=== PATIENT | male | born 1945 | race Caucasian/White ===

== ENCOUNTER → 2023-10-22 10:01 | Outpatient (REF) | payer OTHER, SELFPAY ==
[2023-10-22 10:57] LABS: Urine Albumin Trace (Neg - Trace); Urine Bilirubin Negative (Negative); Urine Character Slightly Cloudy (Clear); Urine Color Straw; Urine Glucose Negative (Negative); Urine Ketone Negative (Negative); Urine Leukocyte Negative (Negative); Urine Nitrite Negative (Negative); Urine Occult Blood 4+ (Negative); Urine Urobilinogen Negative (Neg - 1+)
[2023-10-22 11:13] LABS: Urine Squamous Cell 0-2 /LPF (Few)
[2023-10-22 11:16] LABS: Urine Bacteria Few (Negative)
[2023-10-22 11:17] LABS: Urine Red Blood Cell 30-40 /HPF (0-2)
[2023-10-22 11:18] LABS: Urine White Cell 40-50 /HPF (0-5)
[2023-10-22 11:21] LABS: Blood Urea Nitrogen 35 mg/dl (9-20); Calcium 9.4 mg/dl (8.4-10.2); Carbon Dioxide 23 mmol/L (22-30); Chloride 108 mmol/L (98-107); Glucose 108 mg/dl (70-99); Potassium 4.6 mmol/L (3.5-5.1); Sodium 141 mmol/L (135-145); eGFR 26.94
== END ==
LOC: REG 10:01
PROVIDERS: ATTENDING PHYSICIAN Family Medicine
DX: N18.31 Chronic kidney disease, stage 3a (principal); I10 Essential (primary) hypertension; R31.0 Gross hematuria
CPT/HCPCS: 36415; 80048; 81003; 81015; 87086

== ENCOUNTER → 2023-10-24 13:51 | Outpatient (REF) | payer OTHER, SELFPAY | LOC: HWRAD 13:51 | PROVIDERS: ATTENDING PHYSICIAN Family Medicine | DX: R31.0 Gross hematuria (principal) | CPT/HCPCS: 74176 ==

== ENCOUNTER 2023-10-24 17:04 | Emergency (ER) | payer OTHER, SELFPAY ==
[2023-10-24 17:11] VITALS: BP 180/110
[2023-10-24 17:38] LABS: Urine Albumin 2+ (Neg - Trace); Urine Bilirubin Negative (Negative); Urine Character Very Cloudy (Clear); Urine Color Amber; Urine Glucose Negative (Negative); Urine Ketone Negative (Negative); Urine Leukocyte Trace (Negative); Urine Nitrite Negative (Negative); Urine Occult Blood 4+ (Negative); Urine Specific Gravity 1.015 (<1.030); Urine Urobilinogen Negative (Neg - 1+)
[2023-10-24 17:39] LABS: % Basophils 0.8 % (0-2); % Eosinophils 0.8 % (0-6); % Immature Granulocytes 0.6 % (0-0.5); % Lymphocytes 41.7 % (20.5-51.1); % Monocytes 8.1 % (1.7-9.3); Absolute Basophils 0.1 10^3/uL (0-0.2); Absolute Eosinophils 0.1 10^3/uL (0-0.7); Absolute Immature Granulocytes 0.1 10^3/uL (0-0.05); Absolute Lymphocytes 3.3 10^3/uL (1.2-3.4); Absolute Monocytes 0.6 10^3/uL (0.1-0.6); Absolute Neutrophils 3.8 10^3/uL (1.4-6.5); Hematocrit 37.2 % (39.0-52.0); Hemoglobin 12.8 g/dL (13.0-18.0); Mean Corp Hgb Conc. 34.4 g/dL (33.0-37.0); Mean Corpuscular Hgb 31.7 pg (27.0-31.0); Mean Corpuscular Volume 92.1 fL (80.0-94.0); Mean Platelet Volume 9.6 fL (7.4-10.4); Nucleated Red Blood Cells % 0 % (-); Platelet Count 285 10^3/uL (130-400); Red Blood Cell Count 4.04 10^6/uL (4.70-6.10); Red Cell Dist. Width 12.5 % (11.5-14.5); White Blood Cell Count 7.9 10^3/uL (4.8-10.8)
[2023-10-24 17:46] LABS: Urine Bacteria Many (Negative); Urine Red Blood Cell 50-60 /HPF (0-2)
[2023-10-24 17:49] LABS: ALT (SGPT) 15 U/L (0-50); AST (SGOT) 26 U/L (17-59); Albumin 4.7 g/dl (3.5-5.0); Alkaline Phosphatase 98 U/L (38-126); Blood Urea Nitrogen 33 mg/dl (9-20); Calcium 9.2 mg/dl (8.4-10.2); Carbon Dioxide 23 mmol/L (22-30); Chloride 109 mmol/L (98-107); Glucose 95 mg/dl (70-99); Potassium 4.5 mmol/L (3.5-5.1); Sodium 141 mmol/L (135-145); Total Bilirubin 0.8 mg/dl (0.2-1.3); Total Protein 7.5 g/dl (6.3-8.2); eGFR 28.35
--- NOTE | 2023-10-24 18:27 | ED.GENMED ---
History of Present Illness
General
Chief Complaint: Urinary Symptoms
Source: patient
Exam Limitations: none
Time Seen by Provider: 10/24/23 18:25
Nursing documentation reviewed up to this point in time: agreed with
Travel History
Have you had any contact with someone who has COVID-19?: No
Do you have any symptoms of coronavirus? Fever > 100 degrees, chills, cough, shortness of breath, sore throat, loss of taste or smell, muscle aches, or headache?: No
History of Present Illness
History of Present Illness:
The patient is a 78-year-old man who reports that he had an outpatient CAT scan done earlier today and after his primary care doctor about the result, he was told to come to the emergency department. Patient reports a 5 to 6-day history of blood in
his urine. He is not on blood thinners. He denies dizziness, chest pain or shortness of breath. Patient reports he feels well. He denies back pain, nausea, vomiting, chills and fever. Patient has no complaints.
Past History
Past History
ED Past Medical History: Hypercholesterolemia and Hypothyroidism
ED Past Surgical History: Tonsilectomy and Other (Hernia surgery)
Social History
Tobacco: Non-smoker
Alcohol: Occasional
Personal:
Living: with family
Employment: Other
Family History
Family History: Other
Review of Systems
Review of Systems
Allergies reviewed?: Yes
All Other Systems: ROS reviewed and negative except as documented in HPI and ROS
Constitutional: Reports no symptoms
EENT: Reports no symptoms
Respiratory: Reports no symptoms
Cardiac: Reports no symptoms
ABD/GI: Reports no symptoms
: Reports bleeding
Musculoskeletal: Reports no symptoms
Skin: Reports no symptoms
Neurological: Reports no symptoms
Endocrine: Reports no symptoms
Hematologic/Lymphatic: Reports no symptoms
Psychiatric: Reports no symptoms
Phy Exam
Physical Exam
Physical Exam:
Physical Exam
General: no apparent distress, not acutely ill. Well and comfortable appearing
Neck: supple. no meningeal signs. normal psoterior pharynx
Heart: s1/s2 regular rate and rhythm, no murmur. equal radial pulses.
Lungs: no acute respiratory distress. clear bilaterally
Abdomen: normal bowel sounds. not tender. no CVAT
Neuro: alert and oriented. no focal neurological deficits
Skin: no rash
Psychiatric: well kept. interactive and cooperative
Extremities: no edema. no calf tenderness. negative homans. good distal pulses
Course
Orders/Labs/Results
Orders:
Orders
10/24/23 17:24
Complete Blood Count/With Diff Urgent
Comprehensive Metabolic Panel Urgent
Urinalysis Reflex To Culture Urgent
Date Specimen was Collected: 10/24/23
Time Specimen was Collected: 17:13
Urine Microscopic Reflex Cult Urgent
Urine Culture Urgent
BECKI Source: U
Specimen Description:
Date Specimen was Collected: 10/24/23
Time Specimen was Collected: 17:13
10/24/23 19:26
LevoFLOXacin [Levaquin] 500 mg PO NOW STA
Abnormal Lab Results
10/24/23
17:24
RBC 4.04 L 10^6/uL
(4.70-6.10)
Hgb 12.8 L g/dL
(13.0-18.0)
Hct 37.2 L %
(39.0-52.0)
MCH 31.7 H pg
(27.0-31.0)
Abs Immat Gran (auto) 0.1 H 10^3/uL
(0-0.05)
Immature Gran % 0.6 H %
(0-0.5)
Chloride 109 H mmol/L
(98-107)
BUN 33 H mg/dl
(9-20)
Creatinine 2.3 H mg/dL
(0.7-1.3)
Ur Occult Blood Reflex 4+ A
(Negative)
Leukocyte Esterase Rfl Trace A
(Negative)
Urine RBC 50-60 A /HPF
(0-2)
Urine Bacteria (Reflex) Many A
(Negative)
Urine Albumin (Reflex) 2+ A
(Neg - Trace)
10/24/23 17:24
10/24/23 17:24
Vital Signs
Initial and Last Documented VS:
Initial Vital Signs
Temp Pulse Resp BP Pulse Ox
98.0 F 82 16 180/110 98
10/24/23 17:11 10/24/23 17:11 10/24/23 17:11 10/24/23 17:11 10/24/23 17:11
Last Documented Vital Signs
Temp Pulse Resp BP Pulse Ox
98.0 F 78 18 167/91 98
10/24/23 17:11 10/24/23 19:20 10/24/23 19:20 10/24/23 19:20 10/24/23 17:11
MDM/Problems Addressed
Differential Diagnosis Includes:
Kidney stone, UTI, bladder mass
MDM/Problems Addressed:
Patient presents with acute hematuria from this week
Chronic conditions affecting care: HTN
Acute Exacerbation and/or Progression of Chronic Illness:
Patient is acutely hypertensive, he feels is due to nervousness of being in the ED
Acute Exacerbation and/or Progression of Chronic Illness: HTN
*Radiology
Radiology exam reviewed: radiology read reviewed
*Pulse Oximetry
Patient hypoxic: no
*EKG
Interpreted by ED Provider?: NA
*Door Cutter Interpretation
Rate: Door Cutter- N/A
*Critical Care Note
Total Time (30-74mins, 75-104mins- exclusive of procedures): Not Applicable
Data Reviewed
Source: patient and spouse
Patient Management
Social determinants of health affecting care: Living situation and Strong social support
Discussion with other providers: Other (Dr. Mcnamara)
Escalation/DeEscalation of care consider admission/obs:
Discussed patient's presentation, CT and lab results with Dr. Mcnamara. Dr. Mcnamara assured me that he can see the patient this Friday
Patient denies back pain, chills, nausea and states he feels great and really wants to go home. He understands the importance of following up with Dr. Mcnamara.
ED Attending Note
-
Portions of this chart may have been created with voice recognition software.� Occasional wrong word or��sound alike� substitutions may have occurred due to the inherent limitations of voice recognition software.
Discharge Plan
Departure
Patient Disposition: Home (Routine Discharge)
Date of Disposition: 10/24/23
Time of Disposition: 18:34
Patient with high blood pressure during this ER visit?: Yes
Condition: Good
Covid-19: Not Applicable
Discharge Problem:
Mass of bladder, Hydronephrosis of left kidney
Instructions: Hydronephrosis, Adult (DC), BLOOD PRESSURE
Prescriptions:
New
ciprofloxacin HCl [Cipro] 250 mg tablet
250 mg PO BID 5 Days Qty: 10 0RF
No Action
amlodipine 5 mg tablet
5 mg PO QPM
levothyroxine 100 mcg tablet
100 mcg PO DAILY
simvastatin 20 mg tablet
20 mg PO HS
Referrals:
Alejandro Mcnamara MD [Active] - (Please call Dr. Mcnamara's office this Friday and let the office know that Dr. Mcnamara has spoken to the emergency doctor and knows that you need to be seen this Friday )
Interventions
Interventions:
*Risk Screen - Suicide Last Done: 10/24/23 19:18
*General Assessment Last Done: 10/24/23 19:18
*Neglect/Abuse Screening Last Done: 10/24/23 19:18
ED- Fall Risk Assessment Last Done: 10/24/23 19:18
*ED COVID-19 Vaccine History Last Done: 10/24/23 17:11
*Nursing Disposition Last Done: 10/24/23 19:36
ED-Male Genitourinary Assessment Last Done: 10/24/23 19:16
Discharge Date and Time
Discharge Date/Time: 10/24/23 19:37
[2023-10-24 19:20] VITALS: BP 167/91
[2023-10-24] MEDS: LEVAQUIN 500 MG PO (19:31)
== END 2023-10-24 19:37 | disposition home or self-care (01) ==
LOC: EMR 17:04
PROVIDERS: EMERGENCY PHYSICIAN Emergency Medicine; FAMILY PHYSICIAN Family Medicine
DX: N32.9 Bladder disorder, unspecified (principal); R31.9 Hematuria, unspecified; N13.30 Unspecified hydronephrosis; I10 Essential (primary) hypertension; E03.9 Hypothyroidism, unspecified; E78.00 Pure hypercholesterolemia, unspecified
CPT/HCPCS: 99283; 80053; 81003; 81015; 85025; 87086

== ENCOUNTER 2023-11-06 06:33 | Day surgery (SDC) | payer OTHER, SELFPAY ==
[2023-11-04 09:02] LABS: INR 0.99; PT 12.9 Sec (11.4-14.6)
[2023-11-04 12:40] VITALS: BMI 27.0
[2023-11-06] VITALS (26 sets, daily range): BP systolic 72–148; BP diastolic 55–122; BMI 27.0
[2023-11-06] MEDS: CYSVIEW KIT 100 MG INTRAVES (07:57)
[2023-11-06] MEDS: NORMOSOL-R 1000 IV (07:57)
--- NOTE | 2023-11-06 10:33 | W.PN.URO.CBU ---
Today's Communication / Plan
-
cbi and try and wean by fri
Assessment / Plan
-
cbi check labs irad awate needs left erc tube probably friday try and decrease cbi and serial hgb and creatini hand irrigate prn
Diagnosis
-
Date of Service: November 06, 2023
-
Patient Diagnosis:
bladder mass await path but looked muscle invasive has left hydro needs perec tube irad aware
Post Op Day:
Subjective
-
hates armijo
Objective
-
Vital Signs
Temp Pulse Resp BP Pulse Ox
98.9 F 84 16 148/82 100
11/06/23 07:44 11/06/23 07:44 11/06/23 07:44 11/06/23 07:44 11/06/23 07:44
Review of Systems
-
Abdomen/GI: Abdominal Pain (bladder spasms)
: Flank Pain and Difficulty Voiding
Physical Exam
-
General - well developed, well nourished, no acute distress
Chest - clear bilaterally
Abdomen - soft, non-tender, positive bowel sounds, no CVAT, no incisional pain or distention
Genitalia - normal
Rectal - normal
Skin - warm & dry with no rash
Neuro - AOx3, no motor deficits
Extremities - no clubbing, no cyanosis, no edema
Incision - clean, dry
Dressing - clean, dry, intact
Counseling
-
irad to see about perc tube
Care Review
Data Reviewed
Discussed with: Nursing, IRAD and Family
[2023-11-06 15:11] LABS: ALT (SGPT) 16 U/L (0-50); AST (SGOT) 23 U/L (17-59); Albumin 3.9 g/dl (3.5-5.0); Alkaline Phosphatase 91 U/L (38-126); Blood Urea Nitrogen 41 mg/dl (9-20); Calcium 8.1 mg/dl (8.4-10.2); Carbon Dioxide 21 mmol/L (22-30); Chloride 108 mmol/L (98-107); Estimated Creatinine Clearance 29 ml/min; Glucose 131 mg/dl (70-99); Potassium 4.5 mmol/L (3.5-5.1); Sodium 135 mmol/L (135-145); Total Bilirubin 0.6 mg/dl (0.2-1.3); Total Protein 6.3 g/dl (6.3-8.2); eGFR 33.53
[2023-11-06 15:19] LABS: Hematocrit 35.8 % (39.0-52.0); Hemoglobin 11.9 g/dL (13.0-18.0)
--- NOTE | 2023-11-06 17:00 | PTCARENOTE ---
Pt received from IR s/p L nephrostomy tube placement. AAOx3. On 2L nasal cannula sating 99%. CBI infusing. Tineo draining red punch color urine. No clots noted. L nephrostomy bag with red punch color urine. Pt with no complaints of pain at this
time. Assessment documented. at bedside. Call bustillos within reach.
[2023-11-06] MEDS: NORVASC 5 MG PO (17:29)
[2023-11-06] MEDS: LIPITOR 10 MG PO (21:21)
[2023-11-06] MEDS: BACTRIM 400 MG/80 MG 1 TABLET PO (21:21)
[2023-11-07 03:31] VITALS: BP 118/66
[2023-11-07 04:59] LABS: Hematocrit 32.6 % (39.0-52.0); Hemoglobin 11.1 g/dL (13.0-18.0)
[2023-11-07 05:24] LABS: ALT (SGPT) 12 U/L (0-50); AST (SGOT) 19 U/L (17-59); Albumin 3.6 g/dl (3.5-5.0); Alkaline Phosphatase 82 U/L (38-126); Blood Urea Nitrogen 42 mg/dl (9-20); Calcium 8.5 mg/dl (8.4-10.2); Carbon Dioxide 20 mmol/L (22-30); Chloride 109 mmol/L (98-107); Estimated Creatinine Clearance 27 ml/min; Glucose 115 mg/dl (70-99); Potassium 4.5 mmol/L (3.5-5.1); Sodium 136 mmol/L (135-145); Total Bilirubin 0.5 mg/dl (0.2-1.3); Total Protein 5.9 g/dl (6.3-8.2); eGFR 29.91
[2023-11-07 06:06] LABS: Hepatitis C Antibody Negative (Negative)
[2023-11-07 07:38] VITALS: BP 133/66
[2023-11-07] MEDS: BACTRIM 400 MG/80 MG 1 TABLET PO (08:31)
[2023-11-07] MEDS: SYNTHROID 100 MCG PO (08:31)
--- NOTE | 2023-11-07 08:38 | W.DCSUMMARY ---
Discharge Summary
Discharge Data
Date of Admission: 11/06/23
Date of Discharge: 11/07/23
Total time spent discharging patient (in min): 35 mins
-
Pending Results: Yes (pathology)
Hospital Course
pt with 7 cm bladder mass unsderwent turbt Also preoperatively had left hydronephrosis Went to [facility] for palcement lt perutaneous nephrostomy tube Did well overnoght creatinine down 2. 6 to 2.2 hgb stable home today with armijo
Discharge Plan
-
Patient Disposition: Home (Routine Discharge)
Discharge Diagnosis/Procedures: bladder cancer left hydronephrosis
Condition: Good
Diet: No restrictions
Activity: As tolerated
Driving Restrictions: As prior to admission
Bathing Restrictions: None
Other Services: VN
Wound Care: armijo use leg bag when ambulating lg bag at sleep or rest
Referrals:
Alejandro Mcnamara MD [Active] - (call dr mcnamara if questions or problems and to set up next phase treatment [phone])
Anastacio Jasso DO [Family Provider] -
Prescriptions:
New
sulfamethoxazole-trimethoprim [Bactrim DS] 800-160 mg tablet
1 tab PO BID Qty: 10 0RF
Rx Instructions:
1 po bid untol finished increase fluids
Continued
amlodipine 5 mg tablet
5 mg PO QPM
levothyroxine 100 mcg tablet
100 mcg PO DAILY
simvastatin 20 mg tablet
20 mg PO HS
Discharge Orders:
Discharge Patient (As Directed); Ordered 11/07/23
Ordered By: Alejandro Mcnamara
--- NOTE | 2023-11-07 08:44 | W.PN.URO.CBU ---
Today's Communication / Plan
-
teach leg [facility] after lunch
Assessment / Plan
-
cbi stoped id =f stab;e home today with armijo and perc tube
Diagnosis
-
Date of Service: November 07, 2023
-
Patient Diagnosis:
Post Op Day:
Patient Diagnosis:
bladder mass await path but looked muscle invasive has left hydro needs perec tube irad aware
Post Op Day:
Subjective
-
feels well
Objective
-
Vital Signs
Temp Pulse Resp BP Pulse Ox
98.2 F 83 14 133/66 98
11/07/23 07:38 11/07/23 07:38 11/07/23 07:38 11/07/23 07:38 11/07/23 07:38
Intake and Output
11/06/23 11/07/23 11/08/23
06:59 06:59 06:59
Intake Total 630 / 630
Output Total 3735 / 3735 1625 / 1625
Balance -3105 / -3105 -1625 / -1625
Intake:
Oral fluids 480 / 480
IV fluids (Total) 150 / 150
Norm 150 / 150
Output:
Drain Output (Total) 235 / 235
Left Lower Back Placed in IR 235 / 235
True Urine Output from CBI 3500 / 3500 1625 / 1625
Laboratory Results
11/07/23 04:21
11/07/23 04:21
Review of Systems
-
: Bleeding
Physical Exam
-
General - well developed, well nourished, no acute distress
Chest - clear bilaterally
Abdomen - soft, non-tender, positive bowel sounds, no CVAT, no incisional pain or distention
Genitalia - normal
Rectal - normal
Skin - warm & dry with no rash
Neuro - AOx3, no motor deficits
Extremities - no clubbing, no cyanosis, no edema
Incision - clean, dry
Dressing - clean, dry, intact
Care Review
Data Reviewed
Discussed with: Nursing
--- NOTE | 2023-11-07 10:50 | CM ---
Chart reviewed. Spoke with pt and his at bedside
Pt lives with his in a 2 story home
Retired, active, independent
DME - rolling walker in home, not pts
Denies past SNF/HH
PCP - Dr Mtz
Pharm - [facility]
Has ride at home at d/c
CM consulted for HH - TT sent to [facility] Liaison for Home care needs
Plan - Home with [facility]
--- NOTE | 2023-11-07 11:54 | VNURNOTE ---
Home health liaison met with patient and spouse to discuss [facility] services, visit scheduling/frequency, homebound status and pet policy. Patient understands home visits will be 1-2 times a week to assess and teach medical management, armijo
/nephrostomy tube teaching. Patient states he will ask the RN on the unit to show him how to empty the armijo and nephrostomy bag. Patient aware a visiting nurse will contact them for start of care within 1-2 days after discharge from . Brochure
given with contact information. [facility] Referral completed in care port
== END 2023-11-07 15:09 | disposition home or self-care (01) ==
LOC: SDS 06:33
PROVIDERS: ATTENDING PHYSICIAN Specialist; CONSULT PHYSICIAN Radiology Vascular & Interventional Radiology; FAMILY PHYSICIAN Family Medicine
DX: C67.9 Malignant neoplasm of bladder, unspecified (principal); N13.30 Unspecified hydronephrosis
CPT/HCPCS: 52240; C9738; 88307; 36415; 50432; 80053; 85014; 85018; 85610; 86803; 87086; 88341; 88342; 93005; 99152; 99153; A9589; C1729; C1769

== ENCOUNTER → 2023-11-15 09:52 | Outpatient (REF) | payer OTHER, SELFPAY | LOC: REG 09:52 | PROVIDERS: ATTENDING PHYSICIAN Specialist; FAMILY PHYSICIAN Family Medicine | DX: N39.0 Urinary tract infection, site not specified (principal) | CPT/HCPCS: 87086 ==

== ENCOUNTER 2023-11-17 23:57 | Inpatient (IN) | payer MEDICARE, OTHER, SELFPAY ==
[2023-11-17 19:23] VITALS: BP 128/80
[2023-11-17 19:42] LABS: % Basophils 0.4 % (0-2); % Eosinophils 0.1 % (0-6); % Immature Granulocytes 2.7 % (0-0.5); % Lymphocytes 9.5 % (20.5-51.1); % Neutrophils 79.3 % (42.2-75.2); Absolute Basophils 0.1 10^3/uL (0-0.2); Absolute Immature Granulocytes 0.5 10^3/uL (0-0.05); Absolute Lymphocytes 1.6 10^3/uL (1.2-3.4); Absolute Monocytes 1.3 10^3/uL (0.1-0.6); Hematocrit 30.4 % (39.0-52.0); Hemoglobin 10.3 g/dL (13.0-18.0); Mean Corp Hgb Conc. 33.9 g/dL (33.0-37.0); Mean Corpuscular Volume 91.6 fL (80.0-94.0); Mean Platelet Volume 9.7 fL (7.4-10.4); Nucleated Red Blood Cells % 0 % (-); Platelet Count 329 10^3/uL (130-400); Red Blood Cell Count 3.32 10^6/uL (4.70-6.10); Red Cell Dist. Width 12.6 % (11.5-14.5); White Blood Cell Count 16.4 10^3/uL (4.8-10.8)
[2023-11-17 19:56] LABS: ALT (SGPT) 29 U/L (0-50); AST (SGOT) 29 U/L (17-59); Albumin 3.7 g/dl (3.5-5.0); Alkaline Phosphatase 95 U/L (38-126); Blood Urea Nitrogen 43 mg/dl (9-20); Calcium 8.3 mg/dl (8.4-10.2); Carbon Dioxide 18 mmol/L (22-30); Chloride 98 mmol/L (98-107); Glucose 160 mg/dl (70-99); Potassium 5.1 mmol/L (3.5-5.1); Sodium 125 mmol/L (135-145); Total Protein 6.7 g/dl (6.3-8.2); eGFR 24.48
[2023-11-17] MEDS: NSS 500 IV (22:10)
[2023-11-17 22:13] VITALS: BP 136/80
[2023-11-17] MEDS: TORADOL 15 MG IV (22:18)
[2023-11-17 22:20] LABS: Urine Albumin 3+ (Neg - Trace); Urine Bilirubin Negative (Negative); Urine Character Clear (Clear); Urine Color Straw; Urine Glucose Negative (Negative); Urine Ketone Negative (Negative); Urine Leukocyte 2+ (Negative); Urine Nitrite Negative (Negative); Urine Occult Blood 4+ (Negative); Urine Urobilinogen Negative (Neg - 1+)
[2023-11-17 22:32] LABS: Urine Bacteria Moderate (Negative); Urine Squamous Cell 0-2 /LPF (Few)
[2023-11-17 22:34] LABS: Urine Red Blood Cell 50-60 /HPF (0-2); Urine White Cell 50-60 /HPF (0-5)
[2023-11-17 22:57] VITALS: BMI 25.6
[2023-11-17 23:00] VITALS: BP 120/68
[2023-11-17 23:27] VITALS: BP 120/68
--- NOTE | 2023-11-17 23:29 | ED.GENMED ---
History of Present Illness
General
Chief Complaint: Flank Pain
Source: patient and spouse
Exam Limitations: none
Time Seen by Provider: 11/17/23 21:44
Nursing documentation reviewed up to this point in time: agreed with
Travel History
Have you had any contact with someone who has COVID-19?: No
Do you have any symptoms of coronavirus? Fever > 100 degrees, chills, cough, shortness of breath, sore throat, loss of taste or smell, muscle aches, or headache?: No
History of Present Illness
History of Present Illness:
Patient status post recent nephrostomy tube placement, presents to ED secondary to intermittent flank pain over the past 24 hours. Of note, patient reports having chills sensation 3 days ago and was started on ciprofloxacin empirically by his
urologist. Denies fever. Denies nausea or vomiting. Denies trauma. Patient does have history of kidney stones, but that was over 30 years ago. In addition, Tineo catheter was removed by visiting nurse at home today.
Past History
Past History
ED Past Medical History: Hypercholesterolemia and Hypothyroidism
ED Past Surgical History: Tonsilectomy and Other (Hernia surgery)
Social History
Tobacco: Non-smoker
Alcohol: Occasional
Personal:
Living: with family
Employment: Other
Family History
Family History: Other
Review of Systems
Review of Systems
Allergies reviewed?: Yes
All Other Systems: ROS reviewed and negative except as documented in HPI and ROS
Constitutional: Reports no symptoms; Denies fever
ABD/GI: Reports no symptoms; Denies nausea or vomiting
: Reports flank pain; Denies dysuria or difficulty voiding
Musculoskeletal: Reports no symptoms
Skin: Reports no symptoms
Neurological: Reports no symptoms
Phy Exam
Physical Exam
Physical Exam:
Physical Exam
General: mild painful distress, not acutely ill. afebrile
Head: nc/at. eomi
Neck: supple. no meningeal signs.
Heart: s1/s2 regular rate and rhythm, no murmur. equal radial pulses.
Lungs: no acute respiratory distress. clear bilaterally
Abdomen: normal bowel sounds. not tender.
Neuro: alert and oriented. no focal neurological deficits
Skin: no rash. left nephrostomy tube in place, draining.
Psychiatric: well kept. interactive and cooperative
Extremities: no edema. no calf tenderness.
Course
Orders/Labs/Results
Orders:
Orders
11/17/23 19:35
CMP [Comprehensive Metabolic Panel] Urgent
Complete Blood Count/With Diff Urgent
11/17/23 21:50
CT Abd/pel Without Iv Or Oral Urgent
Comment:
Reason For Exam: flank pain with recent nephrostomy tube placement
0.9% Sodium Chloride 500 ml [Nss] 500 ml IV BOLUS
Ketorolac [Toradol] 15 mg IV NOW STA
11/17/23 22:04
Urinalysis Reflex To Culture Urgent
Date Specimen was Collected: 11/17/23
Time Specimen was Collected: 22:03
Urine Microscopic Reflex Cult Urgent
Urine Culture Urgent
BECKI Source: U
Specimen Description:
Date Specimen was Collected: 11/17/23
Time Specimen was Collected: 22:03
11/17/23 23:29
CefTRIAXone [Rocephin] 1,000 mg IV NOW STA
11/17/23 23:30
Lactic Acid Q4H
Comment: CANCEL 2nd LACTIC ACID IF 1st LACTIC ACID IS LESS THAN 2
Blood Culture Q30M
BECKI Source: Blood/Venous
Specimen Description:
11/17/23 23:40
Admit/Transfer Patient As Directed
Co-Sign Provider:
Level of Care: Inpatient admission
Assign to:: Medical/Surgical
Physician / Group: Geno
Diagnosis: Nephrostomy tube dislodgment
Reason for Hospitalization: UTI and nephrostomy tube dislodgment
Expected length of stay greater than two midnights?: Yes
ELOS- Estimated Length of Stay in days: 3
I certify the patient meets the requirements for IP care: Yes
11/17/23 23:41
Code Status As Directed
Resuscitation Status: Full Code
11/18/23 01:16
0.9% Sodium Chloride 1000 ml [Nss] 1,000 ml IV 80 mls/hr
Acetaminophen [Tylenol] 650 mg PO Q6HPRN PRN
11/18/23 01:16
Activity As Directed
Activity Level: Out of Bed-Early Mobility
Vital Signs As Directed
Frequency: Per unit guidelines
DX Deep Vein Thrombosis Video Routine
11/18/23 05:36
Basic Metabolic Panel IN AM
Complete Blood Count/No Diff IN AM
Magnesium IN AM
TSH IN AM
11/18/23 Breakfast
NPO
Allow oral meds: Yes
Allow clear liquids: 4hrs prior to procedure
NPO with Ice Chips: Yes
Comment: may have unrestricted clear liquid up to 4 hrs prior to scheduled procedure
11/18/23 07:00
Levothyroxine [Synthroid] 100 mcg PO DAILY AT 0700
11/18/23 08:00
Heparin 5,000 units SC Q8
11/18/23 18:00
Amlodipine [Norvasc] 5 mg PO QPM
11/18/23 22:00
Atorvastatin [Lipitor] 10 mg PO HS
11/19/23 00:00
CefTRIAXone [Rocephin] 1,000 mg IV Q24H
Abnormal Lab Results
11/17/23 11/17/23
19:35 22:04
WBC 16.4 H 10^3/uL
(4.8-10.8)
RBC 3.32 L 10^6/uL
(4.70-6.10)
Hgb 10.3 L g/dL
(13.0-18.0)
Hct 30.4 L %
(39.0-52.0)
Abs Immat Gran (auto) 0.5 H 10^3/uL
(0-0.05)
Absolute Neuts (auto) 13.0 H 10^3/uL
(1.4-6.5)
Absolute Monos (auto) 1.3 H 10^3/uL
(0.1-0.6)
Immature Gran % 2.7 H %
(0-0.5)
Neutrophils % 79.3 H %
(42.2-75.2)
Lymphocytes % 9.5 L %
(20.5-51.1)
Sodium 125 L mmol/L
(135-145)
Carbon Dioxide 18 L mmol/L
(22-30)
BUN 43 H mg/dl
(9-20)
Creatinine 2.6 H mg/dL
(0.7-1.3)
Glucose 160 H mg/dl
(70-99)
Calcium 8.3 L mg/dl
(8.4-10.2)
Ur Occult Blood Reflex 4+ A
(Negative)
Leukocyte Esterase Rfl 2+ A
(Negative)
Urine RBC 50-60 A /HPF
(0-2)
Urine WBC (Reflex) 50-60 A /HPF
(0-5)
Urine Bacteria (Reflex) Moderate A
(Negative)
Urine Albumin (Reflex) 3+ A
(Neg - Trace)
11/17/23 19:35
11/17/23 19:35
Vital Signs
Initial and Last Documented VS:
Initial Vital Signs
Temp Pulse Resp BP Pulse Ox
98.9 F 116 24 128/80 97
11/17/23 19:23 11/17/23 19:23 11/17/23 19:23 11/17/23 19:23 11/17/23 19:23
Last Documented Vital Signs
Temp Pulse Resp BP Pulse Ox
98.3 F 95 18 113/60 97
11/18/23 15:27 11/18/23 15:27 11/18/23 15:27 11/18/23 15:27 11/18/23 15:27
MDM/Problems Addressed
MDM/Problems Addressed:
CT report reviewed. CT findings along with leukocytosis and urinalysis concerning for pyelonephritis. As such, patient will be admitted for IV antibiotics and further evaluation.
Urine culture and blood culture pending.
*Critical Care Note
Total Time (30-74mins, 75-104mins- exclusive of procedures): Not Applicable
ED Attending Note
-
Portions of this chart may have been created with voice recognition software.� Occasional wrong word or��sound alike� substitutions may have occurred due to the inherent limitations of voice recognition software.
Discharge Plan
Departure
Patient Disposition: Admit
Date of Disposition: 11/17/23
Time of Disposition: 23:33
Presentation/result/management discussed w/ accepting MD/DO: Hospitalist
Discharge Problem:
Acute pyelonephritis
Interventions
Interventions:
*Risk Screen - Suicide Last Done: 11/18/23 05:02
*General Assessment Last Done: 11/17/23 22:13
*Neglect/Abuse Screening Last Done: 11/17/23 19:23
ED- Fall Risk Assessment Last Done: 11/17/23 23:05
*ED COVID-19 Vaccine History Last Done: 11/18/23 04:57
*Nursing Disposition Last Done: 11/18/23 04:36
QD-Lsxuiz-Whoglyaapg Assessment Last Done: 11/17/23 23:05
ED-Male Genitourinary Assessment Last Done: 11/17/23 23:05
Discharge Date and Time
Discharge Date/Time: 11/18/23 04:37
[2023-11-18] VITALS: BP 123/72
--- NOTE | 2023-11-18 00:04 | HPS.HSE ---
Family Physician
-
Family Physician: Anastacio Jasso
Chief Complaint
-
Abdominal and flank pain
History of Present Illness
78-year-old male who hide cystoscopy and up to 80% bladder mass resection in mid October here in the hospital, and after nephrostomy creation of the left side, discharged with a Tineo catheter which has been removed last Friday but look like
when able to urinate few hours later Tineo catheter replaced again at home, Tineo catheter taken out again today around 9:30 in the morning continue drink 2 L fluid but did not urinate much, around 6 PM out of severe abdominal and flank pain
bilaterally, associated with sweating and nausea but no vomiting, the pain was continuous until he got to the ER where he received some IV pain medication and pain went away.
Denies any fever or chill or cough or congestion, no headache or vision change.
Nephrostomy tube in place and and draining good amount of the clear urine.
Accompanied by the at the bedside
Workup in the ER showed leukocytosis and evidence of UTI.
Given Rocephin.
Medical History
Past Medical History
Past Medical History: Reports Other
Past Surgical History: Reports Other
Additional Past Surgical History:
Past medical history Reviewed:
Hypertension
Bladder mass status post resection 80%
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
Dyslipidemia
Chronic disease stage III
History of renal stone
Surgical history:
Recent cystoscopy and bladder mass resection
Medical hernia repair
Right groin hernia repair
Tonsillectomy
Cystoscopy and lithotripsy.
Social history: Lives at home with , no smoking alcohol use.
Family history: Reviewed and noncontributory
Social History
Unable to obtain full social history at this time due to: Other
Family History
Family History: Other
Allergies / Home Medications
Allergies reflects when Allergies were last updated in [facility].
Home Medications with original date entered in [facility]
Allergy/Medication List:
Allergies
Allergy/AdvReac Type Severity Reaction Status Date / Time
No Known Allergies Allergy Verified 11/17/23 19:25
Home Medications
amlodipine 5 mg tablet 5 mg PO QPM 10/24/23
levothyroxine 100 mcg tablet 100 mcg PO DAILY 10/24/23
simvastatin 20 mg tablet 20 mg PO HS 10/24/23
ciprofloxacin HCl 500 mg tablet 500 mg PO Q12H 11/17/23
If medication reconciliation has not been performed, why?: Other
Review of Systems
-
A 12 point ROS was completed and negative except as noted: Yes
Physical Exam
Vital Signs
Vital Signs
Temp Pulse Resp BP Pulse Ox
98.5 F 86 30 120/68 96
11/17/23 23:00 11/17/23 23:00 11/17/23 23:00 11/17/23 23:00 11/17/23 23:05
Physical exam:
General: Awake, alert and oriented x3, not in distress and holds appropriate conversation.
HEENT: No active discharge, ecchymosis or bruising, moist lips, tongue and mucous membrane.
Eyes: No discharge or red conjunctiva, no nystagmus, pupils are reactive and equal
Neck:Supple, no JVD no bruit no goiter.
Respiratory: Normal AP contour and diameter, normal chest wall movement, normal respiratory effort, no respiratory distress,
Lungs: Good air entry bilaterally, no wheezing or rhonchi, no rales or crackles
Heart: S1, S2 regular, normal rate, no added sound.
Genitourinary.-:Nephrostomy tube in the left kidney looks in place, the bag containing clear yellowish urine. No penile discharge.
Gastrointestinal: Positive bowel sounds, soft, nontender, no guarding or rigidity or organomegaly
Musculoskeletal: , no chest wall abnormality or tenderness. All joints and extremities have good range of motion, no muscle tenderness or any joint swelling or tenderness.
Extremities: No pitting edema, good peripheral pulses, good range of motion
Skin: Warm and dry, no ulceration, normal color.
Neurological: Awake, alert and oriented x3, no facial droop, speech clear and comprehensive, good muscle tone, normal sensory and motor function
Psychiatric: Normal mood, normal thought and judgment, normal affect,
Physical Exam
General: Other
Laboratory Results
-
11/17/23 19:35
11/17/23 19:35
Laboratory Results
Total Bilirubin 1.0 mg/dl (0.2-1.3) 11/17/23 19:35
AST 29 U/L (17-59) 11/17/23 19:35
ALT 29 U/L (0-50) 11/17/23 19:35
Alkaline Phosphatase 95 U/L (38-126) 11/17/23 19:35
CT abdominal pelvis:Placement of left percutaneous nephrostomy catheter in the interval since prior study with pigtail catheter seen in the left extrarenal pelvis and significantly decreased left renal collecting system dilatation in the interval
since recent prior study. Mild left perinephric stranding. No findings to suggest right-sided obstructive uropathy.
Markedly limited evaluation of the incompletely distended and unopacified urinary bladder with findings suspicious for at least two masses for which malignancy is the diagnosis of exclusion. Cannot exclude small left ureterocele.
Bilateral lower lobe subsegmental atelectasis and possible superimposed right lower lobe pneumonia/tiny right pleural effusion.
Data Reviewed
-
Diagnostic Radiology: Image Personally Visualized and interpreted, Discussed with Patient and Discussed with Family
Medical Tests (Nuc Med, Echo, EKG etc): Image Personally Visualized and interpreted, Discussed with Patient and Discussed with Family
Lab Data: Labs Reviewed by me, Discussed with Patient and Discussed with Family
Old Records: Reviewed
Impression/Plan
-
IMPRESSION:
78-year-old male presented with abdominal pain, earlier the day of the Tineo catheter Tineo catheter been removed, workup currently concerning for UTI, CT abdominal pelvis showed no acute abnormality, showed improvement of the left kidney size.
Abdominal pain, possible UTI while other causes need to be considered, CT showed no acute abnormality
UTI likely Tineo catheter nephrostomy tube related
Chronic kidney disease
Leukocytosis
Bladder masses
Left hydronephrosis secondary to obstructive uropathy from the bladder.
Hypothyroid
PLAN:
IV fluid.
IV Rocephin to be displaced pending culture and sensitivity
Urology consult for evaluation specially this has been in and out of Tineo catheter since discharge from the hospital
Pain medication
Recheck lab
Continue blood pressure medication.
Not on any antibiotic anymore was given few doses over the weekend.
All discussed with the patient and the
CODE STATUS full code
DVT prophylaxis is heparin subcu
[2023-11-18] MEDS: ROCEPHIN 1000 MG IV (00:26)
[2023-11-18 00:36] LABS: Lactic Acid 0.7 mmol/L (0.7-2.0)
[2023-11-18 01:11] VITALS: BP 126/73
[2023-11-18] MEDS: NSS 1000 IV ×2 (02:18→14:55)
[2023-11-18 04:52] VITALS: BP 135/75; BMI 26.7
--- NOTE | 2023-11-18 05:00 | PTCARENOTE ---
Received patient from ED via stretcher; [employer] orders- VSS. RAC w/ NSS @ 80ml/ hr infusing. Left nephrostomy tube in place- sutures intact- 50ml drained. PMH and medications reviewed by this RN and patient. Patient oriented to room. Call bustillos
within reach.
[2023-11-18 06:24] LABS: Hematocrit 26.8 % (39.0-52.0); Hemoglobin 9.1 g/dL (13.0-18.0); Mean Corpuscular Hgb 30.7 pg (27.0-31.0); Mean Corpuscular Volume 90.5 fL (80.0-94.0); Mean Platelet Volume 9.8 fL (7.4-10.4); Platelet Count 278 10^3/uL (130-400); Red Blood Cell Count 2.96 10^6/uL (4.70-6.10); Red Cell Dist. Width 12.6 % (11.5-14.5); White Blood Cell Count 10.1 10^3/uL (4.8-10.8)
[2023-11-18] MEDS: SYNTHROID 100 MCG PO (06:27)
[2023-11-18 06:49] LABS: Blood Urea Nitrogen 42 mg/dl (9-20); Calcium 7.9 mg/dl (8.4-10.2); Carbon Dioxide 18 mmol/L (22-30); Estimated Creatinine Clearance 22 ml/min; Glucose 102 mg/dl (70-99); Potassium 4.9 mmol/L (3.5-5.1); Sodium 129 mmol/L (135-145); eGFR 23.39
[2023-11-18 06:55] LABS: Chloride 101 mmol/L (98-107)
[2023-11-18 07:02] VITALS: BP 106/60
[2023-11-18 07:13] LABS: TSH 2.92 uIU/ml (0.47-4.68)
[2023-11-18] MEDS: HEPARIN 5000 UNITS SC ×2 (09:05→16:47)
--- NOTE | 2023-11-18 09:11 | VNURNOTE ---
Patient is current with [facility] since 11/08 w/SN, will monitor progress and plan at discharge.
--- NOTE | 2023-11-18 11:45 | CM ---
Reviewed the chart notes and spoke with the patient at the bedside. The patient resides with his spouse in a two story home with three steps to enter. The patient reports no DME/SNF in the past, but is current with [facility] services. CM continues to
be available to patient/family and is monitoring medical plan for needs at discharge.
Plan: Discharge to home with resumption of [facility] services.
--- NOTE | 2023-11-18 12:18 | W.PN.URO.CBU ---
Today's Communication / Plan
-
no gu changes
Assessment / Plan
-
leukocytosi with neg irine at time frm peniole armijo ct scan suggestive left pyelo . 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 F or now await cxs of blood and as
pt feeling better continue present care A
Diagnosis
-
Date of Service: November 18, 2023
-
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
Post Op Day:
Subjective
-
feesluch betyter this am
Objective
-
Vital Signs
Temp Pulse Resp BP Pulse Ox
99 F 85 19 106/60 94
11/18/23 07:02 11/18/23 07:02 11/18/23 07:02 11/18/23 07:02 11/18/23 07:02
Intake and Output
11/17/23 11/18/23 11/19/23
06:59 06:59 06:59
Intake Total 160 / 160
Output Total 350 / 350
Balance -190 / -190
Intake:
IV fluids (Total) 160 / 160
Output:
Urinary Drain Output (Total) 50 / 50
Left Nephrostomy 50 / 50
Urine, Voided 200 / 200
Urostomy output 100 / 100
Laboratory Results
11/18/23 05:36
11/18/23 05:36
Review of Systems
-
: Flank Pain, Urgency and Dark Urine
Physical Exam
-
General - well developed, well nourished, no acute distress
Chest - clear bilaterally
Abdomen - soft, non-tender, positive bowel sounds, no CVAT, no incisional pain or distention
Genitalia - normal
Rectal - normal
Skin - warm & dry with no rash
Neuro - AOx3, no motor deficits
Extremities - no clubbing, no cyanosis, no edema
Incision - clean, dry
Dressing - clean, dry, intact
Counseling
-
continue present care
Care Review
Data Reviewed
Discussed with: Nursing
CT Scan: Image Pers Reviewed
--- NOTE | 2023-11-18 12:59 | W.PN.HOSP.TC ---
Addendum entered and electronically signed by Bennie Diaz MD 11/18/23 16:37:
Patient seen and examined
Discussed with resident
Impression/plan:
Suspected complicated urinary tract infection
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
Tineo catheter recently removed.
Empiric antibiotics pending final cultures
Urology input appreciated
EMMY on CKD stage IIIb baseline creatinine around 2.2
Creatinine up to 2.7. Noted nongap metabolic acidosis
Good urine output through left nephrostomy
Urinates
Continue IV hydration
Monitor renal function
Original Note:
Today's Communication/Plan
-
- Continue ceftriaxone.
- Continue IV hydration.
- Follow BMP.
Assessment / Plan
Assessment / Plan
Assessment:
Kee Gomez, 78 year-old male, presented to the emergency on 11-17-23 with�intermittent flank pain and chills. He was started on ciprofloxacin empirically by his urologist a few days prior when his symptoms began. His medical history is
significant for up to 80% bladder mass resection in mid-October 2023 here in the hospital. He also got a left nephrostomy, and was discharged with a Tineo catheter which was removed last on 11-12-23. Tineo catheter was taken out again on 11-17-23
in the morning, and he drank about 2 L fluid through the day but did not urinate much; started experiencing intermittent flank pain bilaterally, associated with chills, sweating and nausea but no vomiting. The pain was continuous until he got to the
ED where he received some IV analgesics, and the pain subsided. Nephrostomy tube is in place and and draining good amount of clear urine. Workup in the ER showed leukocytosis and evidence of UTI, and he was started on ceftriaxone IV.
Impression:
* Urinary tract infection
* Chronic kidney disease, stage 4
* Papillary urothelial carcinoma
* Hypothyroidism
* Hypertension
* Dyslipidemia
Plan:
Urinary tract infection
- His Tineo was removed last on 11-12-23.
- Taken out again on 11-17-23 in the morning, and he drank about 2 L fluid through the day but did not urinate much.
- He had been experiencing intermittent chills 2 days prior to that, and was put on ciprofloxacin empirically by his urologist.
- He started experiencing intermittent flank pain bilaterally, associated with chills, sweating and nausea but no vomiting on 11-17-23.
- The pain was continuous until he got to the ED where he received some IV analgesics, and the pain subsided.
- Nephrostomy tube is in place and and draining good amount of clear urine.
- In the ED, he was tachycardic and had leukocytosis; urinalysis indicated infection.
- Urine and blood cultures pending.
- Started on empiric ceftriaxone.
- Pain is better controlled and he has not experienced chills or fevers since initiating antibiotics.
- Urology following.
Chronic kidney disease, stage 4
- Creatinine was 2.6 on 11-17-23, slightly up from baseline of 2.2 from his previous discharge on 11-07-23.
- Continue IV hydration.
- Follow BMP.
Papillary urothelial carcinoma
- He underwent a successful transurethral resection of bladder tumor of 7 cm on 11-06-23.
- Some tumor left at the left lateral wall due to a brisk obturator kick.
- Also had a left nephrostomy placed, and was discharged with a Tineo catheter.
Hypothyroidism
- Continue levothyroxine.
Hypertension
- Continue amlodipine.
Dyslipidemia
- Continue atorvastatin.
DVT prophylaxis
- Heparin SC and SCD.
Code status
- Full.
Anticipated Discharge: 24 - 48 hours
Subjective/Interval History
-
Date of Service: November 18, 2023
Objective Data
-
Labs:
Laboratory Results
11/18/23
05:36
WBC 10.1
Hgb 9.1 L
Hct 26.8 L
Plt Count 278
Sodium 129 L
Potassium 4.9
Chloride 101
Carbon Dioxide 18 L
BUN 42 H
Creatinine 2.7 H
Glucose 102 H
Calcium 7.9 L
Vital Signs:
Vital Signs
Temp Pulse Resp BP Pulse Ox
99 F 85 19 106/60 94
11/18/23 07:02 11/18/23 07:02 11/18/23 07:02 11/18/23 07:02 11/18/23 07:02
I&O
11/17/23 11/18/23 11/19/23
06:59 06:59 06:59
Intake Total 160 / 160
Output Total 350 / 350
Balance -190 / -190
Review of Systems
-
History Source: Patient
Constitutional: Reports No Symptoms
EENT: Reports No Symptoms Reported
Respiratory: Reports No Symptoms
Cardiac: Reports No Symptoms
Abdomen/GI: Reports No Symptoms
Genitourinary: Reports Flank Pain (overnight; not at present)
Musculoskeletal: Reports No Symptoms
Skin: Reports No Symptoms
Neuro: Reports No Symptoms
Endocrine: Reports No Symptoms
Hematologic / Lymphatic: Reports No Symptoms
Allergy / Immunology: Reports No Symptoms
Physical Exam
-
General: No Apparent Distress and Comfortable
HEENT: Normocephalic, Atraumatic, Moist Mucous Membranes and Anicteric
Respiratory: Clear to Auscultation and Non Labored Respirations
Cardiac: Regular Rhythm and S1/S2
GI: Soft, Nontender, Nondistended and No Hepatosplenomegaly
Genito-urinary: No Costovertebral Tender
Musculoskeletal: No Clubbing, No Cyanosis and No Edema
Skin: Warm, Dry and IV Access / Catheter Site
Neuro: Awake, Alert, Oriented, No Motor Deficits and No Sensory Deficits
Hematologic / Lymphatic: No Lymphadenopathy
Psych: Calm and Intact Judgement/Insight
[2023-11-18 15:27] VITALS: BP 113/60
--- NOTE | 2023-11-18 15:31 | VNURNOTE ---
[facility] resumption of care completed in [facility] after review of chart and discussion with patient and . Patient confirmed having [facility] contact number.
[2023-11-18] MEDS: NORVASC 5 MG PO (18:05)
[2023-11-18] MEDS: LIPITOR 10 MG PO (21:06)
[2023-11-18 23:00] VITALS: BP 122/62
[2023-11-19] MEDS: STERILE WATER FOR INJECTION 10 ML IV (00:08)
[2023-11-19] MEDS: ROCEPHIN 1000 MG IV ×2 (01:00→23:59)
[2023-11-19] MEDS: HEPARIN 5000 UNITS SC ×3 (01:00→16:57)
[2023-11-19 05:08] LABS: % Basophils 0.9 % (0-2); % Immature Granulocytes 4.8 % (0-0.5); % Lymphocytes 15.1 % (20.5-51.1); % Monocytes 12.9 % (1.7-9.3); % Neutrophils 66.3 % (42.2-75.2); Absolute Basophils 0.1 10^3/uL (0-0.2); Absolute Immature Granulocytes 0.4 10^3/uL (0-0.05); Absolute Lymphocytes 1.3 10^3/uL (1.2-3.4); Absolute Monocytes 1.1 10^3/uL (0.1-0.6); Absolute Neutrophils 5.8 10^3/uL (1.4-6.5); Hemoglobin 9.1 g/dL (13.0-18.0); Mean Corp Hgb Conc. 33.7 g/dL (33.0-37.0); Mean Corpuscular Hgb 30.3 pg (27.0-31.0); Mean Platelet Volume 9.6 fL (7.4-10.4); Nucleated Red Blood Cells % 0 % (-); Platelet Count 337 10^3/uL (130-400); Red Cell Dist. Width 12.9 % (11.5-14.5); White Blood Cell Count 8.8 10^3/uL (4.8-10.8)
[2023-11-19 05:48] LABS: Blood Urea Nitrogen 39 mg/dl (9-20); Calcium 7.9 mg/dl (8.4-10.2); Carbon Dioxide 16 mmol/L (22-30); Chloride 109 mmol/L (98-107); Estimated Creatinine Clearance 23 ml/min; Glucose 112 mg/dl (70-99); Potassium 4.6 mmol/L (3.5-5.1); Sodium 133 mmol/L (135-145); eGFR 24.48
[2023-11-19] MEDS: SYNTHROID 100 MCG PO (06:16)
[2023-11-19 08:10] VITALS: BP 163/98
--- NOTE | 2023-11-19 09:36 | W.PN.URO.CBU ---
Today's Communication / Plan
-
cotinue present care
Assessment / Plan
-
leukocytosis now normalized with neg urine at time frm penile armijo blood cxcs negative so far ct scan suggestive left pyelo . 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
mets. F or now await cxs of blood and as pt feeling better continue present care ACreatinn e down aslightly and bears observing probanle nephrotoxity of infection etc noevidence obstruction nor bladder leak of perforation
Diagnosis
-
Date of Service: November 19, 2023
-
Patient Diagnosis:
Post Op Day:
Patient Diagnosis:high grade bladder cance s/p turbt with left renal obstiction treated wt plef t pec tube Now fever bilatera; flankpain and ct scanc/w left pyelonephritis nl rt kidney and ureter
Post Op Day:
Subjective
-
feeling better no flankmpain in 30 hours
Objective
-
Vital Signs
Temp Pulse Resp BP Pulse Ox
98.8 F 105 18 163/98 95
11/19/23 08:10 11/19/23 08:10 11/19/23 08:10 11/19/23 08:10 11/19/23 08:10
Intake and Output
11/18/23 11/19/23 11/20/23
06:59 06:59 06:59
Intake Total 160 / 160 1520 / 1520
Output Total 350 / 350 1150 / 1150
Balance -190 / -190 370 / 370
Intake:
Oral fluids 880 / 880
IV fluids (Total) 160 / 160 640 / 640
Output:
Urinary Drain Output (Total) 50 / 50 350 / 350
Left Nephrostomy 50 / 50 350 / 350
Urine, Voided 200 / 200 800 / 800
Urostomy output 100 / 100
Other:
Number of approximated SMALL 1
amounts of urine
Number of approximated MODERATE 1
amounts of urine
How many times incontinent 1
SATURATED amount urine
Laboratory Results
11/19/23 04:43
11/19/23 04:43
Review of Systems
-
: Dark Urine
Physical Exam
-
General - well developed, well nourished, no acute distress
Chest - clear bilaterally
Abdomen - soft, non-tender, positive bowel sounds, no CVAT, no incisional pain or distention
Genitalia - normal
Rectal - normal
Skin - warm & dry with no rash
Neuro - AOx3, no motor deficits
Extremities - no clubbing, no cyanosis, no edema
Incision - clean, dry
Dressing - clean, dry, intact
Counseling
-
no guchanges
[2023-11-19 11:01] VITALS: BP 120/65
--- NOTE | 2023-11-19 11:10 | W.PN.HOSP.TC ---
Addendum entered and electronically signed by Bennie Diaz MD 11/19/23 16:52:
Patient seen and examined
Discussed with resident
Discussed with nursing and urology.
Impression/plan:
Suspected complicated urine tract infection
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
Tineo catheter recently removed.
Acute kidney injury on CKD stage IIIb with baseline creatinine 2.2
Afebrile nontoxic-appearing
Blood cultures/urine cultures negative to date.
Creatinine slowly trending down to 2.7.
On exam patient with recurrent urine hesitancy.
Follow-up bladder scan with over 500 mL PVR.
Given above including EMMY likely postobstructive component plan is to replace Tineo catheter and initiate Flomax
Continue IV antibiotics for another 24 hours finalizing cultures
Trend creatinine
Plan is for discharge with Tineo catheter and left nephrostomy tube in place to follow-up with urology.
Original Note:
Today's Communication/Plan
-
- Continue ceftriaxone IV and fluids.
- Tamsulosin and Tineo.
- Check BMP in AM.
Assessment / Plan
Assessment / Plan
Assessment:
Kee Gomez, 78 year-old male, presented to the emergency on 11-17-23 with�intermittent flank pain and chills. He was started on ciprofloxacin empirically by his urologist a few days prior when his symptoms began. His medical history is
significant for up to 80% bladder mass resection in mid-October 2023 here in the hospital. He also got a left nephrostomy, and was discharged with a Tineo catheter which was removed last on 11-12-23. Tineo catheter was taken out again on 11-17-23
in the morning, and he drank about 2 L fluid through the day but did not urinate much; started experiencing intermittent flank pain bilaterally, associated with chills, sweating and nausea but no vomiting. The pain was continuous until he got to the
ED where he received some IV analgesics, and the pain subsided. Nephrostomy tube is in place and and draining good amount of clear urine. Workup in the ER showed leukocytosis and evidence of UTI, and he was started on ceftriaxone IV.
Impression:
* Urinary tract infection
* Chronic kidney disease, stage 4
* Papillary urothelial carcinoma
* Hypothyroidism
* Hypertension
* Dyslipidemia
Plan:
Completed urinary tract infection
- His Tineo was removed last on 11-12-23.
- Taken out again on 11-17-23 in the morning, and he drank about 2 L fluid through the day but did not urinate much.
- He had been experiencing intermittent chills 2 days prior to that, and was put on ciprofloxacin empirically by his urologist.
- He started experiencing intermittent flank pain bilaterally, associated with chills, sweating and nausea but no vomiting on 11-17-23.
- The pain was continuous until he got to the ED where he received some IV analgesics, and the pain subsided.
- Nephrostomy tube is in place and and draining good amount of clear urine.
- In the ED, he was tachycardic and had leukocytosis; urinalysis indicated infection.
- Urine and blood cultures pending.
- Started on empiric ceftriaxone.
- Pain is better controlled and he has not experienced chills or fevers since initiating antibiotics.
- Had bladder retention; ordered Tineo and tamsulosin.
- Urology following.
Acute kidney injury on chronic kidney disease, stage 4
- Creatinine was 2.6 on 11-17-23, slightly up from baseline of 2.2 from his previous discharge on 11-07-23.
- If this improves with Tineo, can consider discharge tomorrow.
- Continue IV hydration.
- Follow BMP.
Papillary urothelial carcinoma
- He underwent a successful transurethral resection of bladder tumor of 7 cm on 11-06-23.
- Some tumor left at the left lateral wall due to a brisk obturator kick.
- Also had a left nephrostomy placed, and was discharged with a Tineo catheter.
Hypothyroidism
- Continue levothyroxine.
Hypertension
- Continue amlodipine.
Dyslipidemia
- Continue atorvastatin.
DVT prophylaxis
- Heparin SC and SCD.
Code status
- Full.
Anticipated Discharge: Within 24 hours
Subjective/Interval History
-
Date of Service: November 19, 2023
Objective Data
-
Labs:
Laboratory Results
11/19/23
04:43
WBC 8.8
Hgb 9.1 L
Hct 27.0 L
Plt Count 337 D
Sodium 133 L
Potassium 4.6
Chloride 109 H
Carbon Dioxide 16 L
BUN 39 H
Creatinine 2.6 H
Glucose 112 H
Calcium 7.9 L
Vital Signs:
Vital Signs
Temp Pulse Resp BP Pulse Ox
98.8 F 105 18 163/98 95
11/19/23 08:10 11/19/23 08:10 11/19/23 08:10 11/19/23 08:10 11/19/23 08:10
I&O
11/18/23 11/19/23 11/20/23
06:59 06:59 06:59
Intake Total 160 / 160 1520 / 1520
Output Total 350 / 350 1150 / 1150
Balance -190 / -190 370 / 370
Review of Systems
-
History Source: Patient
Constitutional: Reports No Symptoms
EENT: Reports No Symptoms Reported
Respiratory: Reports No Symptoms
Cardiac: Reports No Symptoms
Abdomen/GI: Reports No Symptoms
Genitourinary: Reports No Symptoms
Musculoskeletal: Reports No Symptoms
Skin: Reports No Symptoms
Neuro: Reports No Symptoms
Endocrine: Reports No Symptoms
Hematologic / Lymphatic: Reports No Symptoms
Allergy / Immunology: Reports No Symptoms
Physical Exam
-
General: No Apparent Distress and Comfortable
HEENT: Normocephalic, Atraumatic, Moist Mucous Membranes and Anicteric
Respiratory: Clear to Auscultation and Non Labored Respirations
Cardiac: Regular Rhythm and S1/S2
GI: Soft, Nontender, Nondistended, Normal Bowel Sounds and No Hepatosplenomegaly
Genito-urinary: No Costovertebral Tender
Musculoskeletal: No Clubbing, No Cyanosis and No Edema
Skin: Warm, Dry and IV Access / Catheter Site
Neuro: Awake, Alert, Oriented, No Motor Deficits and No Sensory Deficits
Hematologic / Lymphatic: No Lymphadenopathy
Psych: Calm and Intact Judgement/Insight
[2023-11-19] MEDS: FLOMAX 0.400000000000000022 MG PO (13:40)
[2023-11-19 15:25] VITALS: BP 127/62
--- NOTE | 2023-11-19 15:37 | CM ---
Chart reviewed and plan is to home with [facility].
Plan; Home with [facility].
[2023-11-19] MEDS: NORVASC 5 MG PO (16:56)
[2023-11-19] MEDS: LIPITOR 10 MG PO (22:42)
[2023-11-19 23:01] VITALS: BP 120/65
[2023-11-20] MEDS: STERILE WATER FOR INJECTION 10 ML IV
[2023-11-20] MEDS: FLUSH (NSS) 2 FLUSH IV (00:02)
[2023-11-20 06:14] LABS: % Basophils 0.5 % (0-2); % Immature Granulocytes 3.5 % (0-0.5); % Monocytes 12.9 % (1.7-9.3); % Neutrophils 68.1 % (42.2-75.2); Absolute Basophils 0.1 10^3/uL (0-0.2); Absolute Immature Granulocytes 0.3 10^3/uL (0-0.05); Absolute Lymphocytes 1.4 10^3/uL (1.2-3.4); Absolute Monocytes 1.2 10^3/uL (0.1-0.6); Absolute Neutrophils 6.2 10^3/uL (1.4-6.5); Hematocrit 27.1 % (39.0-52.0); Hemoglobin 9.1 g/dL (13.0-18.0); Mean Corp Hgb Conc. 33.6 g/dL (33.0-37.0); Mean Corpuscular Hgb 30.7 pg (27.0-31.0); Mean Corpuscular Volume 91.6 fL (80.0-94.0); Mean Platelet Volume 9.9 fL (7.4-10.4); Nucleated Red Blood Cells % 0 % (-); Platelet Count 362 10^3/uL (130-400); Red Blood Cell Count 2.96 10^6/uL (4.70-6.10); Red Cell Dist. Width 12.9 % (11.5-14.5); White Blood Cell Count 9.2 10^3/uL (4.8-10.8)
[2023-11-20] MEDS: SYNTHROID 100 MCG PO (06:33)
[2023-11-20 06:37] LABS: Blood Urea Nitrogen 33 mg/dl (9-20); Carbon Dioxide 19 mmol/L (22-30); Chloride 104 mmol/L (98-107); Estimated Creatinine Clearance 27 ml/min; Glucose 107 mg/dl (70-99); Potassium 4.6 mmol/L (3.5-5.1); Sodium 134 mmol/L (135-145); eGFR 29.91
[2023-11-20 07:28] LABS: Glucose - Point of Care 123 mg/dl (70-99)
[2023-11-20 07:32] VITALS: BP 131/79
[2023-11-20] MEDS: HEPARIN 5000 UNITS SC ×2 (08:03)
[2023-11-20] MEDS: TYLENOL 650 MG PO (08:03)
[2023-11-20] MEDS: FLOMAX 0.400000000000000022 MG PO (08:04)
--- NOTE | 2023-11-20 12:57 | W.DS.TRANS ---
DC Summary - [employer]
-
Discharge Instructions:
Discharge Diagnosis/Procedures Acute urinary retention with obstructive
uropathy
Complicated UTI
EMMY on CKD
Diet Regular
Blood Work BMP in one week
Instructions:
Stand-Alone Forms:
Changes to Home Medications: Yes
Discharge Medications:
DC Medications w/original date entered in [facility]
amlodipine 5 mg tablet 5 mg PO QPM Blood Pressure 10/24/23
levothyroxine 100 mcg tablet 100 mcg PO DAILY Thyroid 10/24/23
simvastatin 20 mg tablet 20 mg PO HS High Cholesterol 10/24/23
tamsulosin 0.4 mg capsule 0.4 mg PO DAILY #30 caps 11/20/23
Home Medication Changes
Flomax initiated
Pending Results: No
--- NOTE | 2023-11-20 13:33 | CM ---
Patient has been medically cleared for discharge to home with resumption of [facility] services. Patient discharging with armijo and L nephrostomy tube. Patient's will transport home.
--- NOTE | 2023-11-20 13:39 | W.PN.URO.CBU ---
Today's Communication / Plan
-
per hospiralst but home with armijo
Assessment / Plan
-
leukocytosis now normalized with neg urine at time frm penile armijo blood cxcs negative so far ct scan suggestive left pyelo . 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
mets. F or now await cxs of blood and as pt feeling better continue present care ACreatinn e downalmost baseline
Diagnosis
-
Date of Service: November 20, 2023
-
Patient Diagnosis:
Post Op Day:
Patient Diagnosis:
Post Op Day:
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
Post Op Day:
Subjective
-
feels basline but not voiding
Objective
-
Vital Signs
Temp Pulse Resp BP Pulse Ox
98.7 F 102 18 131/79 95
11/20/23 09:56 11/20/23 07:32 11/20/23 07:32 11/20/23 07:32 11/20/23 07:32
Intake and Output
11/19/23 11/20/23 11/21/23
06:59 06:59 06:59
Intake Total 1520 / 1520 900 / 900
Output Total 1150 / 1150 1750 / 1750 110 / 110
Balance 370 / 370 -850 / -850 -110 / -110
Intake:
Oral fluids 880 / 880 900 / 900
IV fluids (Total) 640 / 640
Output:
Urinary Drain Output (Total) 350 / 350 110 / 110
Left Nephrostomy 350 / 350 110 / 110
Urine, Armijo 1750 / 1750
Urine, Voided 800 / 800
Other:
Number of approximated SMALL 1
amounts of urine
Number of approximated MODERATE 1
amounts of urine
How many times incontinent 1
SATURATED amount urine
Laboratory Results
11/20/23 04:18
11/20/23 04:18
Review of Systems
-
: Difficulty Voiding
Physical Exam
-
General - well developed, well nourished, no acute distress
Chest - clear bilaterally
Abdomen - soft, non-tender, positive bowel sounds, no CVAT, no incisional pain or distention
Genitalia - normal
Rectal - normal
Skin - warm & dry with no rash
Neuro - AOx3, no motor deficits
Extremities - no clubbing, no cyanosis, no edema
Incision - clean, dry
Dressing - clean, dry, intact
Counseling
-
home with armijo and leg bg
Care Review
Data Reviewed
Discussed with: Nursing
--- NOTE | 2023-11-20 13:43 | PN.CDI ---
CDI
- -
CDI:
Physician Documentation Request
Admit Date: 11/17/23 23:57
Dear Doctor Joe,
Please review the following and provide your response in the progress notes.
Clinical Indicators:
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
- 'baseline creatinine 2.2'
Laboratory Tests
11/17/23 11/18/23 11/20/23
19:35 05:36 04:18
Creatinine 2.6 H 2.7 H 2.2 H
eGFR 24.48 23.39 29.91
Please clarify which of the following accurately represents the patient's renal status:
CKD 4, EMMY ruled out
EMMY on CKD 3b
Other
Criteria for EMMY*
1 Increase in serum creatinine by > or = to 0.3 mg/dL (> or = to 26.5 micromol/L) within 48 hours, OR
2 Increase in serum creatinine to > or = to 1.5 times baseline, which is known or presumed to have occurred within 7 days, OR
3 Urine volume < 0.5 nL/kg/hour for six hours
Stages of Chronic Kidney Disease*
Level Description GFR
G1 Normal or High >90
G2 Mildly decreased 60-89
G3a Mildly to moderately decreased 45-59
G3b Moderately to severely decreased 30-44
G4 Severely decreased 15-29
G5 Kidney failure <15
Use of terms such as suspected, likely, concern for, or probable (associated with a specific diagnosis that is being evaluated, monitored, or treated as if it exists) are acceptable and can be coded in the inpatient setting, when documented at the
time of discharge.
Thank you,
Michele Carlin RN
CDI Specialist
Please use your independent medical judgment in providing your response.
*Source: Kidney Disease: Improving Global Outcomes (KDIGO) 2012
[2023-11-20 15:00] VITALS: BP 153/84
== END 2023-11-20 16:10 | disposition home or self-care (01) | DRG 690 ==
LOC: 2 SOUTH 23:57
PROVIDERS: Student in an Organized Health Care Education/Training Program; ADMITTING PHYSICIAN Internal Medicine; ATTENDING PHYSICIAN Internal Medicine; CONSULT PHYSICIAN Specialist; EMERGENCY PHYSICIAN Emergency Medicine; FAMILY PHYSICIAN Family Medicine
DX: N13.6 Pyonephrosis (principal); C66.2 Malignant neoplasm of left ureter; E03.9 Hypothyroidism, unspecified; N17.9 Acute kidney failure, unspecified; E78.00 Pure hypercholesterolemia, unspecified; N99.522 Malfunction of incontinent external stoma of urinary tract; N18.31 Chronic kidney disease, stage 3a; I12.9 Hypertensive chronic kidney disease with stage 1 through stage 4 chronic kidney disease, or unspecified chronic kidney disease; Z87.442 Personal history of urinary calculi
CPT/HCPCS: 74176; 80048; 80053; 81003; 81015; 82962; 83605; 83735; 84443; 85025; 85027; 87040; 87086; 90677; 96361; 96374; 99285; G0009

== ENCOUNTER → 2023-12-01 07:44 | Outpatient (REF) | payer MEDICARE, OTHER, SELFPAY ==
[2023-12-01 08:45] LABS: % Basophils 1.1 % (0-2); % Immature Granulocytes 2.6 % (0-0.5); % Lymphocytes 33.6 % (20.5-51.1); % Neutrophils 53.7 % (42.2-75.2); Absolute Basophils 0.1 10^3/uL (0-0.2); Absolute Immature Granulocytes 0.2 10^3/uL (0-0.05); Absolute Lymphocytes 2.5 10^3/uL (1.2-3.4); Absolute Monocytes 0.7 10^3/uL (0.1-0.6); Hemoglobin 10.2 g/dL (13.0-18.0); Mean Corp Hgb Conc. 31.9 g/dL (33.0-37.0); Mean Corpuscular Hgb 29.8 pg (27.0-31.0); Mean Corpuscular Volume 93.6 fL (80.0-94.0); Mean Platelet Volume 9.3 fL (7.4-10.4); Nucleated Red Blood Cells % 0 % (-); Platelet Count 377 10^3/uL (130-400); Red Blood Cell Count 3.42 10^6/uL (4.70-6.10); White Blood Cell Count 7.4 10^3/uL (4.8-10.8)
[2023-12-01 09:08] LABS: ALT (SGPT) 20 U/L (0-50); AST (SGOT) 20 U/L (17-59); Albumin 3.8 g/dl (3.5-5.0); Alkaline Phosphatase 94 U/L (38-126); Blood Urea Nitrogen 47 mg/dl (9-20); Calcium 9.2 mg/dl (8.4-10.2); Carbon Dioxide 21 mmol/L (22-30); Chloride 107 mmol/L (98-107); Glucose 111 mg/dl (70-99); Potassium 5.2 mmol/L (3.5-5.1); Sodium 140 mmol/L (135-145); Total Bilirubin 0.4 mg/dl (0.2-1.3); Total Protein 6.9 g/dl (6.3-8.2); eGFR 24.48
== END ==
LOC: REG 07:44
PROVIDERS: ATTENDING PHYSICIAN Family Medicine
DX: C67.9 Malignant neoplasm of bladder, unspecified (principal); N17.9 Acute kidney failure, unspecified
CPT/HCPCS: 36415; 80053; 85025

== ENCOUNTER → 2023-12-08 08:57 | Outpatient (REF) | payer OTHER, SELFPAY ==
[2023-12-08 09:20] VITALS: BP 136/76; BP_SYST 79
[2023-12-08 10:00] VITALS: BP 123/74; BP_SYST 78
[2023-12-08] MEDS: STERILE WATER FOR INJECTION 20 ML IV (10:08)
[2023-12-08] MEDS: ROCEPHIN 2000 MG IV (10:08)
[2023-12-08] MEDS: GENTAMICIN 50 IV (10:15)
[2023-12-08 11:30] VITALS: BP 124/92; BP_SYST 82
[2023-12-08 12:25] VITALS: BP 124/92
== END ==
LOC: RADI 08:57
PROVIDERS: ATTENDING PHYSICIAN Specialist; FAMILY PHYSICIAN Family Medicine
DX: C67.9 Malignant neoplasm of bladder, unspecified (principal); N13.30 Unspecified hydronephrosis
CPT/HCPCS: 50434; 50606; 88112; 99152; C1729; C1769; C1887

== ENCOUNTER → 2024-05-07 08:30 | Outpatient (REF) | payer OTHER, SELFPAY ==
[2024-05-07 10:27] LABS: ALT (SGPT) 16 U/L (0-50); AST (SGOT) 23 U/L (17-59); Albumin 4.5 g/dl (3.5-5.0); Alkaline Phosphatase 94 U/L (38-126); Blood Urea Nitrogen 46 mg/dl (9-20); Calcium 9.7 mg/dl (8.4-10.2); Carbon Dioxide 22 mmol/L (22-30); Chloride 110 mmol/L (98-107); Glucose 101 mg/dl (70-99); HDL Cholesterol 48 mg/dl; LDL Cholesterol, Calculated 103 mg/dl; Potassium 5.7 mmol/L (3.5-5.1); Sodium 145 mmol/L (135-145); Total Bilirubin 0.6 mg/dl (0.2-1.3); Total Cholesterol 178 mg/dl (50-199); Total Protein 7.2 g/dl (6.3-8.2); Triglyceride 136 mg/dl (10-149); Very Low Density Lipoprotein 27 mg/dl (0-30); eGFR 31.43
== END ==
LOC: REG 08:30
PROVIDERS: ATTENDING PHYSICIAN Physician Assistant Medical
DX: I10 Essential (primary) hypertension (principal); E03.8 Other specified hypothyroidism; E78.5 Hyperlipidemia, unspecified; N18.31 Chronic kidney disease, stage 3a
CPT/HCPCS: 36415; 80053; 80061; 84439; 84443

== ENCOUNTER → 2024-07-01 08:38 | Outpatient (REF) | payer OTHER, SELFPAY ==
[2024-07-01 10:28] LABS: Albumin 4.3 g/dl (3.5-5.0); Blood Urea Nitrogen 34 mg/dl (9-20); Calcium 9.5 mg/dl (8.4-10.2); Carbon Dioxide 21 mmol/L (22-30); Chloride 110 mmol/L (98-107); Glucose 102 mg/dl (70-99); Phosphorus 3.2 mg/dl (2.5-4.5); Potassium 5.2 mmol/L (3.5-5.1); Sodium 142 mmol/L (135-145); Uric Acid 6.7 mg/dl (3.5-8.5); eGFR 33.32
[2024-07-01 10:45] LABS: Urine Albumin Trace (Neg - Trace); Urine Bilirubin Negative (Negative); Urine Character Very Cloudy (Clear); Urine Color Straw; Urine Glucose Negative (Negative); Urine Ketone Negative (Negative); Urine Leukocyte 2+ (Negative); Urine Nitrite Positive (Negative); Urine Occult Blood 1+ (Negative); Urine Urobilinogen Negative (Neg - 1+)
[2024-07-01 10:56] LABS: Urine Squamous Cell 0-2 /LPF (Few)
[2024-07-01 10:57] LABS: Urine Bacteria Few (Negative); Urine Red Blood Cell 0-2 /HPF (0-2); Urine White Cell 40-50 /HPF (0-5)
[2024-07-01 11:05] LABS: Protein/creatinine Ratio 0.8; Urine Protein 37 mg/dl
[2024-07-03 02:33] LABS: Angiotensin-1-converting Enzym 37 U/L (16-85)
[2024-07-03 08:50] LABS: ANA, IgG Reflex to HEp-2 Detected (None Detected)
[2024-07-03 14:45] LABS: Intact PTH 66.3 pg/ml (13.6-85.8)
[2024-07-03 23:15] LABS: 24 Hour Urine Total Volume Random mL; Urine Collection Length Random hr; Urine Free Kappa Light Chains 109.46 mg/L (0.00-32.90); Urine Free Lambda Light Chains 26.07 mg/L (0.00-3.79)
== END ==
LOC: REG 08:38
PROVIDERS: ATTENDING PHYSICIAN Specialist; FAMILY PHYSICIAN Physician Assistant Medical
DX: N18.32 Chronic kidney disease, stage 3b (principal)
CPT/HCPCS: 36415; 80069; 81003; 81015; 82164; 82570; 82784; 83521; 83970; 84155; 84156; 84165; 84550; 86038; 86334; 86335